=== PATIENT | female | born 1985 | race Caucasian/White ===

== ENCOUNTER 2016-06-05 05:34 | Emergency (ER) | payer MEDICAID, OTHER ==
[~2016-06-05] VITALS: Ht 160 cm; Wt 48.8 kg
[2016-06-05 05:41] VITALS: BP 106/60
--- NOTE | 2016-06-05 05:51 | NUR ---
PT TAKEN TO BED 6
--- NOTE | 2016-06-05 05:52 | NUR ---
Dr. Godwin evaluating patient at bedside.
--- NOTE | 2016-06-05 05:56 | NUR ---
PT IS 30/F BIB SELF TO ED WITH C/O RASH ON LEGS, ARMS, BACK, FACE AND NECK X 1 MTH GETTING WORSE. PT STATES MED HX HEP C.SKIN IS PINK/WARM/DRY; AAOX4 WITH EVEN AND STEADY GAIT; LUNGS CLEAR BL; HR EVEN AND REGULAR; PT DENIES ANY FEVER, CP, SOB, OR COUGH AT THIS TIME; PATIENT STATES PAIN OF 5/10 AT THIS TIME; VSS; PATIENT POSITIONED FOR COMFORT; HOB ELEVATED; BEDRAILS UP X2; BED DOWN. ER MD MADE AWARE OF PT STATUS.
[2016-06-05 06:05] VITALS: BP 102/64
--- NOTE | 2016-06-05 06:06 | NUR ---
Patient discharged with v/s stable. Written and verbal after care instructions given and explained. Patient alert, oriented and verbalized understanding of instructions. Ambulatory with steady gait. All questions addressed prior to discharge. ID band removed. Patient advised to follow up with PMD. Rx of SYNALAR given. Patient educated on indication of medication including possible reaction and side effects. Opportunity to ask questions provided and answered.
== END 2016-06-05 06:06 | disposition home or self-care (01) ==
LOC: MED 05:34
DX: L85.3 Xerosis cutis (principal); R21 Rash and other nonspecific skin eruption; Z86.19 Personal history of other infectious and parasitic diseases; Z88.5 Allergy status to narcotic agent; Z88.6 Allergy status to analgesic agent